=== PATIENT | male | born 1995 | race Caucasian/White ===

== ENCOUNTER 2022-04-01 16:02 | Emergency (ER) | payer BC, SELFPAY ==
[2022-04-01 16:10] VITALS: BP 122/59; PULSE 62; RESP 18; TEMP 36.9; O2SAT 99
--- NOTE | 2022-04-01 16:30 | DI.CT_ITS ---
Exam(s) CT ABDOMEN PELVIS W EXAM: CT ABDOMEN PELVIS W CLINICAL HISTORY: Epigastric pain, some light stool. TECHNIQUE: Imaging Protocol: Axial computed tomography images with coronal and sagittal reformatted images were created and reviewed CONTRAST MATERIAL: Intravenous: Omnipaque 100cc Oral: None COMPARISON: No exams were available for comparison FINDINGS: VISUALIZED LUNG BASES: No nodules nor pleural effusions evident. ABDOMEN: There is no ascites. LIVER: There are no focal hepatic lesions evident . GALLBLADDER/BILIARY: No obvious gallbladder pathology. CBD is not dilated. PANCREAS: No evidence of pancreatic mass nor dilatation of the pancreatic duct. SPLEEN: Spleen is not enlarged. No obvious intrasplenic lesions. Splenic and portal veins are paten t. ADRENALS: There are no significant adrenal masses. KIDNEYS:No cysts evident. No solid renal masses. No calculi nor hydronephrosis.. ABDOMINAL AORTA: Abdominal aorta is not enlarged. LYMPH NODES:There is no retroperitoneal nor paraaortic adenopathy. ABDOMINAL WALL: No evidence of significant anterior abdominal wall nor inguinal hernia. GI: There is no evidence of bowel obstruction, free air, nor abscess.. However, the colon to the lev el of the splenic flexure is collapsed as are the I ileal loops. Cannot exclude enteritis pattern. There are also prominent mesenteric lymph nodes on the right side, largest measuring approximately 2. 3 by 1.4 cm PELVIS: GI: No evidence of appendicitis.No evidence of sigmoid diverticulitis. LYMPH NODES: There is no intrapelvic nor inguinal adenopathy. REPRODUCTIVE: Prostate and seminal vesicles not enlarged. URINARY BLADDER: No calculi nor obvious masses evident OSSEOUS: No significant osseous lesions. Sacroiliac joints appear unremarkable. There are no fractu res evident. IMPRESSION: 1. There are enlarged lymph nodes in the right side of the mesentery ranging up to 23 x 14 millimeter s. No splenomegaly. 2. Colon to the level of the splenic flexure is completely evacuated and appears somewhat thick-justin d, possible colitis versus just related to nondistention. The appearance of the ileal loops is also somewhat suspect. Given these findings plus the adenopathy, recommend follow-up to rule out inflamma tory bowel disease. RADIATION DOSE DELIVERED: 1,483.38mGy.cm Total DLP DATA REPOSITORY: All CT scans at this facility are submitted to the National Radiology Data Registry (NRDR) Dose Index Registry (DIR) with the [employer] ([employer]). RADIATION OPTIMIZATION: All CT scans at this facility use at least one of these dose optimization te chniques: automated exposure control; mA and/or kV adjustment per patient size (includes targeted exa ms where dose is matched to clinical indication); or iterative reconstruction.
--- NOTE | 2022-04-01 16:38 | ED.GENADUL_ITS ---
Discharge Plan Disposition Patient Disposition: HOME Condition: Improving Discharge Details Clinical Impression: Gastritis, Adenitis Primary Care Provider: None,None ED Provider: Jose Crandall Home Meds and New Rx's Prescriptions: New pantoprazole [Protonix] 20 mg tablet,delayed release (DR/EC) 20 mg PO DAILY Qty: 30 0RF Discharge Instructions Instructions: Gastritis (ED) Additional Instructions: Home to rest. Avoid fatty, fried, spicy and tomato based foods. Avoid eating 1 to 2 hours prior to bedtime. Take Protonix as prescribed for 30 days. Return to the emergency department for any acute concerns. Medical Decision Making This is a 26-year-old male who presents from home complaining of 3 to 4 weeks of intermittent episodes of a burning and sometimes crampy epigastric pain. It seems predominantly left upper quadrant. He has however noted some light and even chalky stools. No fever or vomiting, no blood in the stool. He arrives to the ER with unremarkable vital signs and exam reveals epigastric and left upper quadrant tenderness. The differential diagnosis would include gastritis, pancreatitis, biliary or pancreatic disease. IV access established, patient given Protonix, fluid bolus, screening labs obtained. Patient referred for CT images. The diagnostic studies note reassuring laboratories including CBC and comprehensive panel. Urinalysis unremarkable. CT images: Mildly prominent lymph nodes present small hiatal hernia present, see note of incomplete distention of colon. May be consistent with mesenteric adenitis. Patient improved following intervention. I favor gastritis as well as the possibility of mesenteric adenitis. I discussed home management with him. He understands indications to seek reevaluation. He is stable and appropriate for discharge to the outpatient setting at this time. Lab Data Lab results reviewed: Yes I reviewed the patient's lab results. Labs: Laboratory Results - last 24 hr 04/01/22 04/01/22 04/01/22 16:47 16:47 16:47 WBC 7.67 RBC 5.41 Hgb 15.3 Hct 46.4 MCV 86 MCH 28.3 MCHC 33.0 RDW 12.9 Plt Count 252 MPV 10.3 Immature Gran % 0.3 Neutrophils % 61.4 Lymphocytes % 28.0 Monocytes % 7.4 Eosinophils % 2.1 Basophils % 0.8 Nucleated RBC % 0.0 Absolute Neutrophils 4.71 Absolute Lymphocytes 2.15 Absolute Monocytes 0.57 Absolute Eosinophils 0.16 Absolute Basophils 0.06 Sodium 140 Potassium 3.6 Chloride 105 Carbon Dioxide 27.2 Anion Gap 7.8 BUN 11 Creatinine 1.0 Est GFR (CKD-EPI 2020) 107.12 Glucose 92 Calcium 9.1 Total Bilirubin 0.8 AST 20 ALT 33 Alkaline Phosphatase 99 Total Protein 7.8 Albumin 3.7 Lipase 122 Urine Color Urine Clarity Urine pH Ur Specific [place] Urine Protein Urine Ketones Urine Blood Urine Nitrite Urine Bilirubin Urine Urobilinogen Ur Leukocyte Esterase Urine Glucose 04/01/22 18:00 WBC RBC Hgb Hct MCV MCH MCHC RDW Plt Count MPV Immature Gran % Neutrophils % Lymphocytes % Monocytes % Eosinophils % Basophils % Nucleated RBC % Absolute Neutrophils Absolute Lymphocytes Absolute Monocytes Absolute Eosinophils Absolute Basophils Sodium Potassium Chloride Carbon Dioxide Anion Gap BUN Creatinine Est GFR (CKD-EPI 2020) Glucose Calcium Total Bilirubin AST ALT Alkaline Phosphatase Total Protein Albumin Lipase Urine Color Yellow Urine Clarity Sl Cloudy Urine pH 7.0 Ur Specific [place] 1.025 Urine Protein Negative Urine Ketones Negative Urine Blood Negative Urine Nitrite Negative Urine Bilirubin Negative Urine Urobilinogen 0.2 Ur Leukocyte Esterase Negative Urine Glucose Negative HPI General Mode of arrival: ambulatory . Date/Time Provider Initiated Documentation: 04/01/22 16:29 . Limitations to Documentation: no limitations . Information obtained by: patient . History of Present Illness 26 year old M presents to the emergency department with the chief complaint of Intermittent abdominal pain and stool changes over 3 to 4 weeks time, and is localized to the abdomen. Patient reports no radiation. Patient started experiencing this day(s) and it has been intermittent. No relieving factors improve symptom(s), Eating worsens symptoms . Patient notes other (Some light- colored stools); denies fever/chills. Patient did receive the following treatments prior to arrival, none Related Data Home Medications Medication Instructions Recorded Confirmed pantoprazole 20 mg tablet,delayed 20 mg PO DAILY #30 tabs 04/01/22 release (Protonix) Previous Rx's Medication Instructions Recorded pantoprazole 20 mg tablet,delayed 20 mg PO DAILY #30 tabs 04/01/22 release (Protonix) Allergies Allergy/AdvReac Type Severity Reaction Status Date / Time No Known Allergies Allergy Unverified 04/01/22 16:14 General Stated Complaint: Abd Prob DEREK: 3 Review of Systems Narrative: Pain sometimes affected by food. No fevers or vomiting. Feels stools have been quite light-colored intermittently. No recent illness, otherwise well, 8 systems reviewed [facility] All Active Problems (Updated 04/01/22 @ 19:18 by Jose Crandall MD) Gastritis (Acute) Adenitis (Acute) Social History Smoking/Tobacco Use Status: Never Smoking risk assessment performed?: Yes Substance use type: does not use Do you feel safe at home: Yes Do you feel safe in your relationship?: Yes Exam Narrative Exam Narrative: GEN: awake, alert, oriented 3. Pleasant, well groomed, interactive. HEAD: Normocephalic, atraumatic ENT: Mucous membranes moist, oropharynx unremarkable, External ear exam unremarkable EYES: PERRL, EOMI NECK: Full ROM, no VICTORIANO, no menigismus CHEST/RESP: Nontender, clear to auscultation bilateral, no wheeze/rhonchi/rales CARDIOVASCULAR: RRR, no murmur, rub jim. 2+ Rad pulse bilateral ABDOMEN: Soft, epigastric and left upper quadrant tenderness to palpation without rebound or guarding, no mass. +Bowel sounds EXT: Full ROM, no edema, no rash Neuro: Grossly normal neurologic exam, conversant, interactive. Psych: Speech fluent, thoughts congruent, affect normal Course Vital Signs Vital signs: Vital Signs Temperature 36.9 C 04/01/22 16:10 Pulse 62 04/01/22 16:10 Respiratory Rate 18 04/01/22 16:10 Blood Pressure 122/59 L 04/01/22 16:10 Pulse Oximetry 99 04/01/22 16:10 Temperature 36.9 C 04/01/22 16:10 Temperature Source Tympanic 04/01/22 16:10 Pulse 62 04/01/22 16:10 Respiratory Rate 18 04/01/22 16:10 Respiratory Effort Non-Labored 04/01/22 16:15 Blood Pressure 122/59 L 04/01/22 16:10 Blood Pressure Position Sitting 04/01/22 16:10 Pulse Oximetry 99 04/01/22 16:10 Pain Level 5 04/01/22 16:15
[2022-04-01 16:54] LABS: Abs Immature Grans 0.02 10^3/uL (0.0-0.06); Absolute Basophil Count 0.06 10^3/uL (0.0-0.2); Absolute Eosinophil Count 0.16 10^3/uL (0.0-0.7); Absolute Lymphocyte Count 2.15 10^3/uL (1.2-3.4); Absolute Monocyte Count 0.57 10^3/uL (0.1-0.8); Absolute Neutrophil Count 4.71 10^3/uL (1.2-6.7); Basophils % 0.8; Eosinophils % 2.1; HCT 46.4 % (40.0-50.0); HGB 15.3 g/dL (13.5-17.5); Immature Grans % 0.3; MCH 28.3 pg (27.0-33.0); MCV 86 fL (80-95); MPV 10.3 fL (8.0-11.0); Monocytes % 7.4; Neutrophils % 61.4; Platelet Count 252 10^3/uL (130-400); RBC 5.41 10^6/uL (4.36-5.78); RDW 12.9 % (11.8-14.1); RDW-SD 39.8 fL; WBC 7.67 10^3/uL (4.4-10.8)
[2022-04-01] MEDS: Normal Saline 1,000 ML 1000 ML IV (16:54)
[2022-04-01] MEDS: Pantoprazole 40 MG VIAL IVP (16:55)
[2022-04-01 17:10] LABS: ALT 33 U/L (16-63); AST 20 U/L (15-37); Albumin 3.7 g/dL (3.4-5.0); Alkaline Phosphatase 99 U/L (46-116); Anion Gap 7.8 mmol/L (3-11); BUN 11 mg/dL (7-18); Bilirubin, Total 0.8 mg/dL (0.2-1.0); CO2 27.2 mmol/L (21.0-32.0); Calcium 9.1 mg/dL (8.5-10.1); Chloride 105 mmol/L (98-107); Estimated GFR 107.12 (mL/min/1.73m2); Glucose 92 mg/dL (74-106); Potassium 3.6 mmol/L (3.5-5.1); Sodium 140 mmol/L (136-145); Total Protein 7.8 g/dL (6.4-8.2)
[2022-04-01 17:11] LABS: Lipase 122 U/L (73-393)
[2022-04-01 18:10] LABS: Bilirubin Negative (Negative); Blood Negative (Negative); Clarity Sl Cloudy (Clear); Glucose Negative (Negative); Ketones Negative (Negative); Leukocyte Esterase Negative (Negative); Nitrite Negative (Negative); Specific Gravity 1.025 (1.005-1.025); Urobilinogen 0.2 EU/dL (Up TO 0.2)
[2022-04-01] MEDS: Omnipaque 350 MG/ML 100 ML BTL IJ (18:38)
--- NOTE | 2022-04-01 19:11 | DI.VRAD_ITS ---
PROCEDURE INFORMATION: Exam: CT Abdomen And Pelvis With Contrast Exam date and time: 04/01/2022 6:30 PM Age: 26 years old Clinical indication: Other: Epigastric pain, some light stool TECHNIQUE: Imaging protocol: Computed tomography of the abdomen and pelvis with contrast. Radiation optimization: All CT scans at this facility use at least one of these dose optimization techniques: automated exposure control; mA and/or kV adjustment per patient size (includes targeted exams where dose is matched to clinical indication); or iterative reconstruction. Contrast material: OMNIPAQUE 350; Contrast volume: 100 ml; Contrast route: INTRAVENOUS (IV); COMPARISON: No relevant prior studies available. FINDINGS: Lungs: Lung bases clear. Diaphragm: Small hiatal hernia. Liver: Normal appearing liver. Gallbladder and bile ducts: Gallbladder partially collapsed. No calcified gallstones seen. No biliary dilatation. Pancreas: Normal appearing pancreas. Spleen: Normal appearing spleen. Adrenal glands: Normal appearing adrenal glands. Kidneys and ureters: Normal appearing kidneys. No hydronephrosis. Stomach and bowel: No oral contrast. Stomach partially decompressed. No small bowel dilatation to suggest obstruction. Cecum, ascending colon, and transverse colon well evacuated of fecal material, collapsed, and apparently thick-walled. Artifact of incomplete distention suspected. Acute segmental colitis not excluded. Mild prominence of the perirectal veins suggesting possible hemorrhoids. Appendix: Normal appendix. Intraperitoneal space: No gross ascites or free air. Vasculature: Normal caliber abdominal aorta. Lymph nodes: Scattered small mesenteric lymph nodes, most prominent in the right abdominal mesentery and adjacent to the rectum, nonspecific. Shotty nodes present in the central mesentery and retroperitoneum. Urinary bladder: Normal appearing urinary bladder. Reproductive: Normal-appearing prostate gland and seminal vesicles. Bones/joints: No acute fracture seen among the bones of the abdomen or pelvis. Spinal degenerative change with small Schmorl's nodes at several levels. Soft tissues: No significant ventral or inguinal hernia. IMPRESSION: 1. Mildly prominent lymph nodes in the right abdominal mesentery with the largest measuring 1.7 cm x 1.6 cm on image 49 of series 4. Mildly prominent perirectal nodes also present. Although nonspecific, reactive nodes or mesenteric adenitis could have this appearance. 2. Cecum, ascending colon, and transverse colon almost completely evacuated of fecal material, collapsed, and apparently thick-walled. Artifact of incomplete distention is suspected although acute segmental colitis could probably mimic this appearance. Clinical correlation is recommended. 3. Small hiatal hernia. Dictated and Authenticated by: Armando Jaeger MD. Ordering:BROCK Garcia MD
[2022-04-01 19:26] VITALS: BP 122/59; PULSE 62; RESP 18; TEMP 36.9; O2SAT 99
== END 2022-04-01 19:35 | disposition home or self-care (01) ==
PROVIDERS: Emergency Provider Emergency Medicine
DX: K29.00 Acute gastritis without bleeding (principal); L04.8 Acute lymphadenitis of other sites; R10.13 Epigastric pain; R19.5 Other fecal abnormalities
CPT/HCPCS: 80053; 83690; 96361; 96374; 99285; 74177; 81003; 85025; 99284; J3490